=== PATIENT | female | born 1950 | race Caucasian/White ===

== ENCOUNTER 2020-12-28 00:40 | Inpatient (IN) | payer OTHER, SELFPAY ==
[~2020-12-28] VITALS: Ht 157.5 cm; Wt 90.7 kg
[2020-12-28 00:52] VITALS: BP 151/84
--- NOTE | 2020-12-28 01:02 | NUR ---
PT TAKEN TO BED 1
--- NOTE | 2020-12-28 01:15 | NUR ---
COVERING PRIMARY RN FOR LUNCH RELIEF. SEE COMPLETE ASSESSMENT FOR FUTHER DETAIL. PT PLACED ON 5L VIA NC, O2 SAT IMPROVED AND MAINTAINED AT 92%
--- NOTE | 2020-12-28 01:18 | NUR ---
Dr. Vasquez examining patient.
--- NOTE | 2020-12-28 01:24 | NUR ---
NO BLOOD PRODUCTS. NO COVID MEDICATION TREATMENTS.
--- NOTE | 2020-12-28 01:30 | NUR ---
BLOOD DRAWN VIA IV START AND GIVEN TO SHELIA AMAYA TECH
[2020-12-28] MEDS ORDERED: DEXAMETHASONE 4 MG/ML VIAL IVP ONE (01:40)
[2020-12-28] MEDS ORDERED: AZITHROMYCIN 250 MG TAB PO ONE (01:40)
[2020-12-28 01:47] LABS: BASOPHILS % (AUTO) 0.2 % (0.0-2.0); HEMATOCRIT 39.3 % (36-48); HEMOGLOBIN 13.6 g/dL (12.0-16.0); LYMPHOCYTES # (AUTO) 0.8 K/uL (2.5-16.5); LYMPHOCYTES % (AUTO) 14.6 % (20.5-51.1); MEAN CORPUSCULAR HEMOGLOBIN 29 pg (27-31); MEAN CORPUSCULAR HGB CONC 35 g/dL (33-37); MEAN CORPUSCULAR VOLUME 83.8 fL (80-94); MONOCYTES # (AUTO) 0.5 K/uL (0.8-1.0); MONOCYTES % (AUTO) 10.1 % (1.7-9.3); NEUTROPHILS % (AUTO) 75.1 % (42.2-75.2); PLATELET COUNT (AUTO) 191 K/uL (140-450); RED BLOOD CELL COUNT(AUTO) 4.68 MIL/uL (4.20-5.40); RED CELL DISTRIBUTION WIDTH 13.8 % (11.6-13.7); WHITE BLOOD COUNT (AUTO) 5.3 K/uL (4.8-10.8)
[2020-12-28] MEDS ORDERED: cefTRIAXone 1,000 MG VIAL ONE (01:54)
[2020-12-28 02:04] LABS: ANION GAP 11.4 (8-16); CARBON DIOXIDE 31.3 mmol/L (21-32); CREATININE 0.7 mg/dL (0.6-1.3); POTASSIUM 3.7 mmol/L (3.5-5.1)
[2020-12-28 02:13] LABS: TOTAL BILIRUBIN 0.6 mg/dL (0.0-1.0)
--- NOTE | 2020-12-28 02:19 | NUR ---
ARMEN speaking with daughter Brittnee about parents and their standing on their treatments.
--- NOTE | 2020-12-28 03:37 | NUR ---
assisted patient on bed elias. patient tolerated well but did have some shortness of breath and fatigued after movement.
--- NOTE | 2020-12-28 03:42 | NUR ---
spoke with Layton RODRIGUEZmanager machine for insurance about patient info
--- NOTE | 2020-12-28 03:57 | NUR ---
patient saturating at 85% for about 10mins with no change. ERMD made aware and was told to get a nonrebreather.
--- NOTE | 2020-12-28 04:07 | NUR ---
switched patient on nonrebreather 10L and saturating at 93%. during the switch of nasal cannula to non rebreather patient desaturated to 80%.
--- NOTE | 2020-12-28 04:59 | NUR ---
Patient will be admitted to care of Yaneth MARKS. Admited to Telemetry. Will go to room 117. Belongings list completed. Report to Katelynn RODRIGUEZ.
--- NOTE | 2020-12-28 05:55 | NUR ---
transferred patient to the floor
--- NOTE | 2020-12-28 06:33 | NUR ---
PATIENT ARRIVED TO UNIT MONITOR PLACED ON PT AND A SET OF VITAL SIGNS TAKEN BP 134/70 (92)MAP, 99.0 TEMP, 96% ON NRB AT 10L. MRSA SWAB COLLECTED. ASSISTED PATIENT TO USE BEDPAN. PATIENTS BUTTOCK'S CLEAR. URINATED x1 CLEAR , YELLOW URINE NOTED. PATIENT INSTRUCTED ON HOW TO USE CALL LIGHT. CURRENT NEEDS MET AT THIS TIME. I WILL ENDORSE ADMISSION TO DAY SHIFT.
--- NOTE | 2020-12-28 07:39 | NUR ---
SBAR GIVEN TO PENA RN, PATIENT IS STABLE ON 10L NRB AT THIS TIME. NO ACUTE DISTRESS NOTED. COVID POSITIVE ISOLATION. CURRENT NEEDS MET AT THIS TIME. ENDORSED ADMISSION TO DAY NURSE.
--- NOTE | 2020-12-28 07:40 | NUR ---
RECEIVED PATIENT FROM SCHOOL BUSINESS MANAGER NURSE FOR CONTINUITY OF CARE. PATIENT IS A/A/O X4. TELE MONITOR. RESPIRATORY EVEN AND UNLABORED, ON 10L NON REBREATHER MASK, O2 SAT IS 94%. LUNG SOUND DIMINISH ON BILATERAL. ABDOMEN SOFT, NON TENDER, BOWEL SOUND ACTIVE TO 4 QUADRANTS. S1 AND S2 NOTED, NO MURMUR. NO SIGN OF DISTRESS NOTED. SKIN WARM, DRY, NON DIAPHORETIC. IV ON LEFT AC 20G, INTACT AND PATENT, SALINE LOCK. PATIENT DENIES ANY PAIN OR DISCOMFORT. ABLE TO MAKE NEED KNOWN. PLAN OF CARE DISCUSSED, PATIENT VERBALIZED UNDERSTANDING. ORIENTED TO ROOM AND UNIT. PRECAUTION IN PLACE. CALL LIGHT WITHIN REACH. WILL CONTINUE TO MONITOR.
[2020-12-28] MEDS ORDERED: ONDANSETRON 4 MG/2 ML VIAL IM/IVP PRN (07:50)
[2020-12-28] MEDS ORDERED: DOCUSATE SODIUM 100 MG GELCAP PO PRN (07:50)
[2020-12-28] MEDS ORDERED: POTASSIUM CHLORIDE 10 MEQ TABER PO PRN (07:50)
[2020-12-28] MEDS ORDERED: ALBUTEROL HFA MDI 90 MCG/ACTUATION 8 GM INH PRN (07:50)
[2020-12-28] MEDS ORDERED: ACETAMINOPHEN 325 MG TAB PO PRN (07:50)
[2020-12-28] MEDS ORDERED: ZOLPIDEM 5 MG TAB PO PRN (07:50)
[2020-12-28] MEDS ORDERED: HYDROcodone/APAP 7.5/325 MG 1 TAB PO PRN (07:50)
[2020-12-28 08:00] VITALS: BP 146/70
[2020-12-28] MEDS: NACL 0.9% 1,000 ML IV SCH ×3 (08:27→21:20)
[2020-12-28] MEDS: ASCORBIC ACID 500 MG TAB PO SCH (08:55)
[2020-12-28] MEDS: ZINC SULF 220 MG CAP PO SCH (08:55)
[2020-12-28] MEDS: PANTOPRAZOLE 40 MG TABEC PO SCH (08:55)
[2020-12-28] MEDS ORDERED: COMMUNICATION ORDER MC SCH (09:00)
--- NOTE | 2020-12-28 09:00 | NUR ---
DR DOMINGO AT BEDSIDE DISCUSSED PATIENT CODE STATUS. PATIENT DECIDES "DO NOT INTUBATE AND NO CHEST COMPRESSION". DR DOMINGO AWARE.
--- NOTE | 2020-12-28 09:21 | NUR ---
AWAKE AND ALERT VERBALLY RESPONSIVE NO INDICATION FOR RESPIRATORY DISTRESS NOTED GOOD CHEST RISE AIRWAY PATENT RECEIVED ON SUPPLEMENTAL OXYGEN AT 15LPM VIA NON REBREATHER CANDIDATE FOR FIO2 TITRATION VIA BUBBLE HUMIDIFIER NASAL CANNULA
[2020-12-28 09:35] LABS: CHOL/HDL RATIO 3.2 (1-4.5); FREE T4 (FREE THYROXINE) 1.16 ng/dL (0.76-1.46); MAGNESIUM 2.3 mg/dL (1.8-2.4); PHOSPHORUS 3.6 mg/dL (2.5-4.9); THYROID STIMULATING HORMONE 0.45 uIU/mL (0.34-3.74)
[2020-12-28 09:55] LABS: PROTHROMBIN TIME 9.2 secs (10.8-13.4)
--- NOTE | 2020-12-28 11:03 | NUR ---
PLACED ON A SUPPLEMENTAL OXYGEN AT 8 LPM VIA BUBBLE HUMIDIFIER WITH A CURAPLEX NASAL CANNULA GARNETTER TO MONITOR AND TITRATE TOLERATED PENA/RN NOTIFIED
[2020-12-28 12:00] VITALS: BP_SYST 113; BP_SYST 146; BP_DIAS 69; BP_DIAS 70
[2020-12-28] MEDS ORDERED: REMDESIVIR. 200 MG in NACL 0.9% 100 ML IV SCH (12:00)
[2020-12-28] MEDS ORDERED: remdesivir CLINICAL MONITORING 1 EA MISC MC PRN (12:00)
--- NOTE | 2020-12-28 12:54 | NUR ---
PT REFUSED REMDESIVIR SCHEDULE, EDUCATION GIVEN REGARDING THE BENEFIT OF THE MEDICATION. PATIENT STILL REFUSES. WILL NOTIFY .
--- NOTE | 2020-12-28 14:15 | NUR ---
PATIENT HAS BEEN SCREENED AND CATEGORIZED MODERATE NUTRITION RISK. PATIENT WILL BE SEEN WITHIN 3-5 DAYS OF ADMISSION. 12/28/20 01/01/[address]
--- NOTE | 2020-12-28 14:50 | NUR ---
PATIENT AMBULATES TO BATHROOM INDEPENDENTLY, NO SIGN OF DISTRESS NOTED. PRECAUTION IN PLACE. WILL CONTINUE TO MONITOR.
--- NOTE | 2020-12-28 15:22 | NUR ---
DC PLANNING: THE PATIENT PRESENTED TO THE ED WITH C/O SOB X 3 DAYS AND A RECENT DX OF COVID. CM SPOKE WITH THE PATIENT BY PHONE BECAUSE OF HER ISOLATION FOR COVID. THE PATIENT LIVES IN A 2 STORY HOUSE WITH HER DAUGHTER AND GRANDCHILDREN, WITH SEPARATE LIVING QUARTERS DOWNSTAIRS FOR THE PATIENT AND HER . BOTH ARE VERY ACTIVE WITHOUT LIMITATIONS AND INDEPENDENT WITH ALL ACTIVITIES. NO DME OR H/O HOME HEALTH, THE PATIENT SEES HER PCP NEEDED BECAUSE SHE HAS NO CHRONIC HEALTH ISSUES. THE PATIENT IS CURRENTLY ON 8L O2 VIA NC WITH SATURATIONS AT 94%. THE DC PLAN IS FOR THE PATIENT TO RETURN HOME, CM WILL ARRANGE FOR HOME O2 IF NEEDED. CM WILL FOLLOW FOR NEEDS. Addendum: 01/01/21 at 1421 by Brigid Jarquin CM DC PLANNING: HOME O2 ORDER AND RT DOCUMENTATION FAXED TO KELVIN AT [facility] TO START PROCESS FOR AUTHORIZATION AND DELIVERY OF CONCENTRATOR AND PORTABLE O2. CM WILL FOLLOW FOR NEEDS. Addendum: 01/01/21 at 1619 by Brigid Jarquin CM DC PLANNING: O2 ARRANGED WITH [facility] ([phone]), JOYA CALLED THE PATIENTS DAUGHTER JOAQUIM TO DISCUSS DELIVERY OF O2, JOAQUIM STATED THAT THE PATIENT IS LEAVING NOW. CM CONFIRMED THAT THE PATIENT IS LEAVING WITHOUT O2 DELIVERY, JOAQUIM STATED THAT SHE IS. JOYA THEN INFORMED HER THAT THE PORTABLE O2 AND CONCENTRATOR WOULD BE DELIVERED TO THE PATIENTS HOME. HINA ROSENBERG [facility] FAXED THE ORDER TO [facility], JOYA THEN SPOKE WITH [facility] TO LET THEM KNOW TO DELIVER THE O2 TO THE PATIENTS HOME. CM WILL FOLLOW UP NEEDED.
[2020-12-28 16:00] VITALS: BP 123/69
--- NOTE | 2020-12-28 17:00 | NUR ---
PATIENT IS RESTING IN BED, NO SIGN OF RESPIRATORY DISTRESS NOTED. PRECAUTION IN PLACE. CALL LIGHT WITHIN REACH. WILL CONTINUE TO MONITOR.
--- NOTE | 2020-12-28 18:35 | NUR ---
PATIENT IS SITTING UP FOR DINNER, NO SIGN OF SOB, PATIENT IS STABLE. PRECAUTION IN PLACE. CALL LIGHT WITHIN REACH. WILL CONTINUE TO MONITOR.
--- NOTE | 2020-12-28 19:00 | NUR ---
RECEIVED BEDSIDE REPORT FROM DAY SHIFT NURSE. PATIENT IS AWAKE, ALERT, AND COOPERATIVE RESPIRATION EVEN UNLABORED ON 8L NC O2, SATING AT 89%. NO DISTRESS NOTED. SKIN IS WARM AND DRY. IV PATENT AND INTACT. PLAN OF CARE WAS DISCUSSED. ALL SAFETY MEASURES IN PLACE. BED IS AT LOW POSITION. CALL LIGHT WITHIN REACH. WILL CONTINUE TO MONITOR.
--- NOTE | 2020-12-28 19:18 | NUR ---
ENDORSED PATIENT TO GEOLOGICAL DRAFTER NURSE FOR CONTINUITY OF CARE. PATIENT IS STABLE.
[2020-12-28 20:00] VITALS: BP 120/71
--- NOTE | 2020-12-28 20:55 | NUR ---
ALL SCHEDULED MEDS WERE GIVEN PER ORDER. WILL CONTINUE TO MONITOR
[2020-12-28] MEDS ORDERED: CYCLOBENZAPRINE 10 MG TAB PO PRN (21:15)
[2020-12-28] MEDS ORDERED: CRUSHER, PILL MC ONE (21:49)
--- NOTE | 2020-12-28 21:55 | NUR ---
PATIENT COMPLAINED OF MUSCLE SPASM, PRN FLEXERIL GIVEN PER ORDER. WILL CONTINUE TO MONITOR
[2020-12-29] VITALS: BP 126/55
--- NOTE | 2020-12-29 | NUR ---
VITALS WERE TAKEN
--- NOTE | 2020-12-29 02:01 | NUR ---
MADE ROUNDS PATIENT SLEEPING RESPIRATION EVEN UNLABORED ON 8L NC O2. SATING 93% WILL CONTINUE TO MONITOR
[2020-12-29 04:00] VITALS: BP 130/66
[2020-12-29] MEDS ORDERED: cefTRIAXone 1,000 MG VIAL ONE (05:13)
[2020-12-29] MEDS: AZITHROMYCIN 250 MG TAB PO SCH (05:44)
[2020-12-29 06:07] LABS: T4 (THYROXINE) 8.6 ug/dL (4.5-12.0)
--- NOTE | 2020-12-29 06:07 | NUR ---
FIRST DOSE OF ROCEPHIN GIVEN PER ORDER. WILL CONTINUE TO MONITOR
[2020-12-29 06:26] LABS: HEMATOCRIT 33.8 % (36-48); HEMOGLOBIN 11.7 g/dL (12.0-16.0); LYMPHOCYTES # (AUTO) 0.7 K/uL (2.5-16.5); LYMPHOCYTES % (AUTO) 10.5 % (20.5-51.1); MEAN CORPUSCULAR HEMOGLOBIN 29 pg (27-31); MEAN CORPUSCULAR HGB CONC 35 g/dL (33-37); MEAN CORPUSCULAR VOLUME 84.2 fL (80-94); MONOCYTES # (AUTO) 0.6 K/uL (0.8-1.0); MONOCYTES % (AUTO) 9.4 % (1.7-9.3); NEUTROPHILS # (AUTO) 5.2 K/uL (1.8-7.7); NEUTROPHILS % (AUTO) 80.1 % (42.2-75.2); PLATELET COUNT (AUTO) 211 K/uL (140-450); RED BLOOD CELL COUNT(AUTO) 4.02 MIL/uL (4.20-5.40); RED CELL DISTRIBUTION WIDTH 13.9 % (11.6-13.7); WHITE BLOOD COUNT (AUTO) 6.5 K/uL (4.8-10.8)
[2020-12-29 06:29] LABS: ANION GAP 15.8 (8-16); CARBON DIOXIDE 26.7 mmol/L (21-32); CREATININE 0.6 mg/dL (0.6-1.3); POTASSIUM 3.5 mmol/L (3.5-5.1)
[2020-12-29 06:39] LABS: ALBUMIN 2.4 g/dL (3.4-5.0); BILIRUBIN,DIRECT 0.1 mg/dL (0.0-0.3); TOTAL BILIRUBIN 0.3 mg/dL (0.0-1.0)
--- NOTE | 2020-12-29 07:19 | NUR ---
ENDORSED PATIENT TO DAY SHIFT NURSE FOR CONTINUITY OF CARE
--- NOTE | 2020-12-29 07:20 | NUR ---
Received report from pm nurse Юлия. Patient resting in bed, respirations even & nonlabored on O2 @ 8Lpm via n/c. Left AC IV 20G intact with ongoing NS @ 100ml/hr. Call light within reach.
[2020-12-29] MEDS: ZINC SULF 220 MG CAP PO SCH (08:41)
[2020-12-29] MEDS: ASCORBIC ACID 500 MG TAB PO SCH (08:41)
[2020-12-29] MEDS: PANTOPRAZOLE 40 MG TABEC PO SCH (08:41)
[2020-12-29 12:00] VITALS: BP 136/65
[2020-12-29] MEDS ORDERED: REMDESIVIR. 100 MG in NACL 0.9% 100 ML IV SCH (12:00)
--- NOTE | 2020-12-29 12:30 | NUR ---
Patient sitting up at edge of bed, eating lunch. No c/o discomfort, no signs of distress, respirations even & nonlabored on O2 @ 8L/min via n/c.
[2020-12-29] MEDS: NACL 0.9% 1,000 ML IV SCH ×2 (14:49→23:03)
[2020-12-29 16:00] VITALS: BP 126/72
--- NOTE | 2020-12-29 18:30 | NUR ---
Patient sitting up at edge of bed, eating dinner. No c/o discomfort, respirations even & nonlabored on O2 @ 8L/min via n/c. Left AC IV 20G intact with ongoing NS @ 100ml/hr. Call light within reach.
--- NOTE | 2020-12-29 19:16 | NUR ---
Report given to price Ashraf
--- NOTE | 2020-12-29 19:18 | NUR ---
RECEIVED BEDSIDE REPORT FROM DAY SHIFT NURSE FOR CONTINUITY OF CARE. PATIENT IS AWAKE, ALERT, AND ORIENTED.ON 8L NC O2, SATING AT 92&. NO DISTRESS NOTED.IV INFUSING WELL.ALL SAFETY MEASURES IN PLACE. CALL LIGHT WITHIN REACH. WILL CONTINUE TO MONITOR.
[2020-12-29 20:00] VITALS: BP 155/73
--- NOTE | 2020-12-29 21:00 | NUR ---
SCHEDULED MEDICATION ADMINISTERED.PT NO S/SX OF DISTRESS. CALL LIGHT WITHIN REACH. WILL CONTINUE TO MONITOR.
--- NOTE | 2020-12-29 23:30 | NUR ---
ROUNDS MADE. PT RESTING ON BED. PT NO SIGNS RESPIRATORY OF DISTRESS. PT O2 AT 95%. CALL LIGHT WITHIN REACH. WILL CONTINUE TO MONITOR.
[2020-12-30] VITALS: BP 156/65
[2020-12-30] MEDS: guaiFENesin DM 200/20 MG-10 ML 10 ML UDC PO PRN (02:28)
--- NOTE | 2020-12-30 02:30 | NUR ---
PT COMPLAINED OF COUGH.GIVEN PRN COUGH MEDICATION. PT TOLERATED WELL.CALL LIGHT WITHIN REACH. WILL CONTINUE TO MONITOR.
[2020-12-30 04:00] VITALS: BP 162/75
--- NOTE | 2020-12-30 05:00 | NUR ---
DUE MEDICATIONS GIVEN. PT NOT IN ANY DISTRESS. PROVIDED WARM BLANKET. NO S/SX OF DISTRESS.ALL PRECAUTIONS IN PLACE.CALL LIGHT WITHIN REACH. WILL CONTINUE TO MONITOR.
[2020-12-30] MEDS: AZITHROMYCIN 250 MG TAB PO SCH (05:30)
[2020-12-30 06:08] LABS: ANION GAP 9.3 (8-16); CARBON DIOXIDE 30.4 mmol/L (21-32); CREATININE 0.6 mg/dL (0.6-1.3); POTASSIUM 3.7 mmol/L (3.5-5.1)
--- NOTE | 2020-12-30 06:24 | NUR ---
PT STABLE.NO ACUTE EVENTS THROUGHOUT THE NIGHT.ALL NEEDS ATTENDED.NO OTHER COMPLAINS AT THIS TIME. CALL LIGHT WITHIN REACH. ALL SAFETY PRECAUTIONS IN PLACE.WILL CONTINUE TO MONITOR.WILL ENDORSE TO AM SHIFT NURSE.
[2020-12-30 06:29] LABS: HEMOGLOBIN 12.1 g/dL (12.0-16.0); LYMPHOCYTES # (AUTO) 0.5 K/uL (2.5-16.5); LYMPHOCYTES % (AUTO) 7.4 % (20.5-51.1); MEAN CORPUSCULAR HEMOGLOBIN 29 pg (27-31); MEAN CORPUSCULAR HGB CONC 35 g/dL (33-37); MONOCYTES # (AUTO) 0.5 K/uL (0.8-1.0); MONOCYTES % (AUTO) 7.5 % (1.7-9.3); NEUTROPHILS % (AUTO) 85.1 % (42.2-75.2); PLATELET COUNT (AUTO) 246 K/uL (140-450); RED BLOOD CELL COUNT(AUTO) 4.17 MIL/uL (4.20-5.40); RED CELL DISTRIBUTION WIDTH 13.8 % (11.6-13.7); WHITE BLOOD COUNT (AUTO) 7.1 K/uL (4.8-10.8)
--- NOTE | 2020-12-30 07:25 | NUR ---
RECEIVED BEDSIDE REPORT FROM BURRER MACHINE NURSE FOR CONTINUITY OF CARE. PT IS ASLEEP. CHEST RISE AND FALL IS SYMMETRICAL. ON 8L O2 NC WITH BREATHING UNLABORED. AMBULATORY INDEPENDENTLY. SKIN IS WARM, DRY, AND INTACT. IV IS IN THE RIGHT FOREARM 24 GAUGE RUNNING NS AT 100 ML PER HOUR PER ORDER. PT IS STABLE. PLAN OF CARE DISCUSSED.
--- NOTE | 2020-12-30 07:34 | NUR ---
PT ENDORSED TO AM SHIFT NURSE FOR CONTINUITY OF CARE. PT STABLE
[2020-12-30 08:00] VITALS: BP 124/79
--- NOTE | 2020-12-30 08:30 | NUR ---
DR. DOMINGO NOTIFIED IN PERSON OF SVT ON TELE MONITOR, HR IS 169. DOCTOR STATED TO MONITOR CLOSELY. PT IS IN BED RESTING COMFORTABLY. DENIES CHEST PAIN OR SOB. PT ALSO DENIES ANXIETY. WILL CONTINUE TO MONITOR.
--- NOTE | 2020-12-30 09:00 | NUR ---
WAS NOTIFIED BY Oony THAT HR IS NOW SR, HR 98. WILL CONTINUE TO MONITOR HR.
[2020-12-30] MEDS: ASCORBIC ACID 500 MG TAB PO SCH (09:42)
[2020-12-30] MEDS: ZINC SULF 220 MG CAP PO SCH (09:42)
[2020-12-30] MEDS: lisinopriL 10 MG TAB PO SCH (09:42)
[2020-12-30] MEDS: PANTOPRAZOLE 40 MG TABEC PO SCH (09:42)
[2020-12-30] MEDS: NACL 0.9% 1,000 ML IV SCH ×2 (10:47→19:50)
--- NOTE | 2020-12-30 11:00 | NUR ---
PT IS AWAKE AND ALERT. ON 8L O2 NC WITH O2 SAT 90%. PT DENIES SHORTNESS OF BREATH. DENIES PAIN AT THIS TIME. PT IS STABLE.
[2020-12-30 12:00] VITALS: BP 143/79
--- NOTE | 2020-12-30 13:00 | NUR ---
PT IS SITTING UP IN BED, EATING LUNCH. PT STATES SHE IS OKAY AT THIS TIME. O2 SAT IS 90% ON 8L O2 NC. BREATHING IS UNLABORED. PT APPEARS TO BE COMFORTABLE WITH NO DISTRESS.
--- NOTE | 2020-12-30 15:00 | NUR ---
BREATHING IS UNLABORED ON 8L O2 NC. PT IS AMBULATING INDEPENDENTLY WITH STEADY GAIT. O2 SAT IS CURRENTLY 90%. PT DENIES PAIN. NO COUGHING PRESENT. WILL CONTINUE TO MONITOR.
[2020-12-30 16:00] VITALS: BP 166/88
--- NOTE | 2020-12-30 16:30 | NUR ---
DAUGHTER JOAQUIM NARAYAN CALLED AND INQUIRED ABOUT CONDITION OF MOTHER. INFORMED HER OF THE ELEVATED BP AND TOLD HER THAT THE PT WAS STARTED ON LISINOPRIL IN THE AM TO CONTROL THE ELEVATED BP. INFORMED HER THAT I JUST CHECKED BP AND IT WAS 166/88, THEREFORE IT BECAME ELEVATED AGAIN AND I WAS GOING TO CONTACT DR. DOMINGO AFTER THIS CALL TO OBTAIN A MEDICATION TO CONTROL THE BP. JOAQUIM STATED THAT SHE DOES NOT WANT PT ON LISINOPRIL OR ANY OTHER BP MEDICATION. WITH EDUCATION PT'S FAMILY STILL REFUSED BP MED. SHE ASKED TO SPEAK TO DR. DOMINGO, WILL PROVIDE DR. DOMINGO WITH HER PHONE NUMBER.
--- NOTE | 2020-12-30 16:34 | NUR ---
SPOKE TO PATIENT AND INFORMED HER THAT HER BP IS HIGH 166/88 AND THE DOCTOR WILL NEED TO ORDER BP MEDICATION TO CONTROL THE BP. PT STATES SHE DOES NOT WANT TO TAKE BP MEDICATION AND WOULD LIKE TO WAIT TO SEE IF BP WILL GO DOWN. INFORMED HER OF THE RISKS OF NOT TAKING MEDICATION TO LOWER THE BP AND PT VERBALIZED UNDERSTANDING. IN NEXT BED ALSO WITNESSED CONVERSATION. PT STILL DENIED WANTING TO TAKE BP MEDICATION. WILL INFORM DR. DOMINGO.
--- NOTE | 2020-12-30 16:35 | NUR ---
PROVIDED DR. DOMINGO WITH THE DAUGHTER, JOAQUIM'S, PHONE NUMBER AND ASKED HIM TO CALL HER WHEN AVAILABLE. INFORMED HIM OF THE SITUATION REGARDING NEW MEDICATION INCLUDING NOT WANTING THE PT TO HAVE BP MEDICATION. DOCTOR IS AWARE AND STATED HE WILL CALL DAUGHTERJOAQUIM.
--- NOTE | 2020-12-30 18:14 | NUR ---
ROUNDED ON PT. DINNER WAS PLACED AT BEDSIDE. PT STATES SHE IS NOT HUNGRY AT THIS TIME BUT WILL EAT FOOD THAT IS NOT SALTY. O2 SAT IS 94% ON 8L O2 NC. BREATHING IS UNLABORED. PT DENIES SOB. PT STABLE.
--- NOTE | 2020-12-30 19:05 | NUR ---
ENDORSED PT TO CREATIVE WRITING TEACHER NURSE FOR CONTINUITY OF CARE. PT IS STABLE. PLAN OF CARE DISCUSSED.
--- NOTE | 2020-12-30 19:06 | NUR ---
RECEIVED BEDSIDE REPORT FROM DAY SHIFT NURSE FOR CONTINUITY OF CARE. PATIENT IS SITTING IN BED, AWAKE, ALERT, AND ORIENTED.ON 8L NC O2.SKIN DRY AND INTACT.PT NOT IN ANY DISTRESS.IV INFUSING WELL.ALL SAFETY MEASURES IN PLACE. CALL LIGHT WITHIN REACH. WILL CONTINUE TO MONITOR.
[2020-12-30 20:00] VITALS: BP 162/65
--- NOTE | 2020-12-30 21:00 | NUR ---
SCHEDULED MEDS GIVEN.PT TOLERATED WELL.PT'S BP IS HIGH.PT STATES SHE DOES NOT WANT TO TAKE ANY BP MEDICATION. INFORMED HER OF THE RISKS OF NOT TAKING MEDICATION TO LOWER THE BP AND PT VERBALIZED UNDERSTANDING. PT DENIES CHEST PAIN, DIZZINESS, AND ANY DISCOMFORT.PT HAS NO COMPLAINS AT THIS TIME.ALL PRECAUTIONS IN PLACE.CALL LIGHT WITHIN REACH. WILL CONTINUE TO MONITOR
--- NOTE | 2020-12-30 23:50 | NUR ---
ROUNDS MADE. PT SITTING IN BED. PT NO SIGNS RESPIRATORY OF DISTRESS. PT O2 AT 91%. CALL LIGHT WITHIN REACH. WILL CONTINUE TO MONITOR.
[2020-12-31] VITALS: BP 168/73
--- NOTE | 2020-12-31 02:45 | NUR ---
ROUNDS MADE. PT SLEEPING. PT NO SIGNS RESPIRATORY OF DISTRESS.VISIBLE CHEST RISE AND FALL NOTED. PT O2 AT 93%. ALL PRECAUTIONS IN PLACE.CALL LIGHT WITHIN REACH. WILL CONTINUE TO MONITOR.
[2020-12-31 04:00] VITALS: BP 166/71
--- NOTE | 2020-12-31 04:38 | NUR ---
PT AWAKE AND ALERT VERBALLY RESPONSIVE W/ NO SIGNS OF RESPIRATORY DISTRESS, SYMMETRICAL CHEST RISE SATING 94%ON BUBBLE HUMIDIFIER NASAL CANNULA. WILL CONTINUE TO MONITOR.
--- NOTE | 2020-12-31 05:38 | NUR ---
DUE MEDICATIONS GIVEN. PT NOT IN ANY DISTRESS. PROVIDED WARM BLANKET.ALL NEEDS ATTENDED.ALL PRECAUTIONS IN PLACE.CALL LIGHT WITHIN REACH. WILL CONTINUE TO MONITOR.
[2020-12-31] MEDS: NACL 0.9% 1,000 ML IV SCH ×2 (05:50→15:48)
[2020-12-31 06:15] LABS: ANION GAP 13.5 (8-16); CARBON DIOXIDE 28.3 mmol/L (21-32); CREATININE 0.7 mg/dL (0.6-1.3); POTASSIUM 3.8 mmol/L (3.5-5.1)
[2020-12-31] MEDS: AZITHROMYCIN 250 MG TAB PO SCH (06:26)
[2020-12-31 06:34] LABS: HEMATOCRIT 36.3 % (36-48); HEMOGLOBIN 12.4 g/dL (12.0-16.0); LYMPHOCYTES # (AUTO) 0.6 K/uL (2.5-16.5); LYMPHOCYTES % (AUTO) 8.3 % (20.5-51.1); MEAN CORPUSCULAR HEMOGLOBIN 29 pg (27-31); MEAN CORPUSCULAR HGB CONC 34 g/dL (33-37); MEAN CORPUSCULAR VOLUME 84.1 fL (80-94); MONOCYTES # (AUTO) 0.5 K/uL (0.8-1.0); MONOCYTES % (AUTO) 6.5 % (1.7-9.3); NEUTROPHILS # (AUTO) 6.1 K/uL (1.8-7.7); NEUTROPHILS % (AUTO) 85.2 % (42.2-75.2); PLATELET COUNT (AUTO) 302 K/uL (140-450); RED BLOOD CELL COUNT(AUTO) 4.31 MIL/uL (4.20-5.40); RED CELL DISTRIBUTION WIDTH 13.9 % (11.6-13.7); WHITE BLOOD COUNT (AUTO) 7.2 K/uL (4.8-10.8)
--- NOTE | 2020-12-31 07:15 | NUR ---
PT ENDORSED TO AM SHIFT NURSE FOR CONTINUITY OF CARE. PT IS STABLE.
--- NOTE | 2020-12-31 07:22 | NUR ---
RECEIVED BEDSIDE REPORT FROM FLOOR SURFACER NURSE FOR CONTINUITY OF CARE. PT IS AWAKE AND ALERT. A&OX4. ON 8L O2 NC WITH BREATHING UNLABORED. O2 SAT IS 90%. PT IS ON TELE MONITOR. AMBULATORY INDEPENDENTLY. SKIN IS WARM, DRY, AND INTACT. IV IS IN THE RIGHT HAND AND PATENT. PT IS STABLE. PLAN OF CARE DISCUSSED.
[2020-12-31 08:00] VITALS: BP 138/64
[2020-12-31] MEDS: lisinopriL 10 MG TAB PO SCH (09:00)
[2020-12-31] MEDS: PANTOPRAZOLE 40 MG TABEC PO SCH (09:21)
[2020-12-31] MEDS: ZINC SULF 220 MG CAP PO SCH (09:21)
[2020-12-31] MEDS: ASCORBIC ACID 500 MG TAB PO SCH (09:21)
--- NOTE | 2020-12-31 09:30 | NUR ---
PT IS SITTING UP IN BED. BREATHING UNLABORED ON 4L O2 NC. O2 SAT IS 90%. PT DENIES ANY DISTRESS OR PAIN. PT DID NOT EAT A LOT OF BREAKFAST AND SHE STATED SHE WAS NOT HUNGRY. ALL NEEDS MET.
--- NOTE | 2020-12-31 09:52 | NUR ---
PT REFUSED LISINOPRIL MEDICATION SCHEDULED. EXPLAINED RISKS OF NOT TAKING BP MEDICATION AND PT VERBALIZED UNDERSTANDING. PT STILL REFUSED TO TAKE MEDICATION. BP IS STABLE AT THIS TIME. WILL CONTINUE TO MONITOR.
--- NOTE | 2020-12-31 11:51 | NUR ---
PT IS AWAKE AND ALERT. SITTING UP IN BED IN FRONT OF BEDSIDE TABLE. PT STATES SHE IS OKAY RIGHT NOW. O2 SAT IS 95% ON 4L O2 NC. BREATHING IS UNLABORED. WILL CONTINUE TO MONITOR PT.
[2020-12-31 12:00] VITALS: BP_SYST 129; BP_SYST 150; BP_DIAS 78; BP_DIAS 81
--- NOTE | 2020-12-31 14:45 | NUR ---
O2 SAT IS 93% ON 4L O2 NC. PT WAS TITRATED DOWN TO 3L O2 NC. MONITORED PT FOR 15 MINUTES AND O2 SAT MAINTAINED AT 91%. NO RESPIRATORY DISTRESS NOTED. PT DENIES SOB. PT STABLE. WILL CONTINUE TO MONITOR.
[2020-12-31 16:00] VITALS: BP 156/72
--- NOTE | 2020-12-31 16:45 | NUR ---
PT IS AWAKE AND SITTING AT CHAIR. LINENS WERE CHANGED ON BED AND PT WAS GIVEN NEW GOWN. BREATHING IS UNLABORED ON 4L O2 NC. PT STABLE. WILL CONTINUE TO MONITOR.
--- NOTE | 2020-12-31 19:01 | NUR ---
ENDORSED PT TO API ARCHITECT NURSE FOR CONTINUITY OF CARE. PT IS STABLE AT THIS TIME. O2 SAT IS 90% ON 4L O2 NC. PLAN OF CARE DISCUSSED.
--- NOTE | 2020-12-31 19:10 | NUR ---
RECEIVED BEDSIDE REPORT FROM DAY SHIFT NURSE FOR CONTINUITY OF CARE. PATIENT IS SITTING ON BED,AWAKE, ALERT, AND ORIENTED.ON 4L NC O2 SAT AT 91%. NO RESPIRATORY DISTRESS NOTED.IV INFUSING WELL.ALL SAFETY MEASURES IN PLACE. CALL LIGHT WITHIN REACH. WILL CONTINUE TO MONITOR.
[2020-12-31 20:00] VITALS: BP 159/69
--- NOTE | 2020-12-31 21:00 | NUR ---
SCHEDULED MEDICATION ADMINISTERED.PT TOLERATED WELL.PT NO S/SX OF DISTRESS. CALL LIGHT WITHIN REACH. WILL CONTINUE TO MONITOR.
[2020-12-31] MEDS: guaiFENesin DM 200/20 MG-10 ML 10 ML UDC PO PRN (22:50)
--- NOTE | 2020-12-31 22:50 | NUR ---
PT COMPLAINED OF COUGH.GIVEN PRN COUGH MEDICATION. PT TOLERATED WELL.CALL LIGHT WITHIN REACH. WILL CONTINUE TO MONITOR.
[2021-01-01] VITALS: BP 155/72
--- NOTE | 2021-01-01 01:15 | NUR ---
ROUNDS MADE. PT RESTING IN BED. PT HAS NO SIGNS AND SYMPTOMS OF RESPIRATORY DISTRESS. PT O2 SAT @ 94%. CALL LIGHT WITHIN REACH. WILL CONTINUE TO MONITOR.
[2021-01-01] MEDS: NACL 0.9% 1,000 ML IV SCH ×2 (01:50→12:04)
--- NOTE | 2021-01-01 02:30 | NUR ---
ROUNDS MADE. PT REQUESTED WARM BLANKET. PT'S O2 SAT @ 92%.ALL NEEDS MET.CALL LIGHT WITHIN REACH.WILL CONTINUE TO MONITOR
[2021-01-01 04:00] VITALS: BP 141/73
--- NOTE | 2021-01-01 05:00 | NUR ---
SCHEDULED ANTIBIOTICS GIVEN. PT TOLERATED WELL. WILL CONTINUE TO MONITOR.
[2021-01-01 06:06] LABS: BASOPHILS % (AUTO) 0.1 % (0.0-2.0); EOSINOPHILS % (AUTO) 0.1 % (0.0-4.0); HEMATOCRIT 35.2 % (36-48); HEMOGLOBIN 12.2 g/dL (12.0-16.0); LYMPHOCYTES # (AUTO) 0.7 K/uL (2.5-16.5); LYMPHOCYTES % (AUTO) 9.2 % (20.5-51.1); MEAN CORPUSCULAR HEMOGLOBIN 29 pg (27-31); MEAN CORPUSCULAR HGB CONC 35 g/dL (33-37); MONOCYTES # (AUTO) 0.5 K/uL (0.8-1.0); MONOCYTES % (AUTO) 7.5 % (1.7-9.3); NEUTROPHILS % (AUTO) 83.1 % (42.2-75.2); PLATELET COUNT (AUTO) 320 K/uL (140-450); RED BLOOD CELL COUNT(AUTO) 4.19 MIL/uL (4.20-5.40); RED CELL DISTRIBUTION WIDTH 13.4 % (11.6-13.7); WHITE BLOOD COUNT (AUTO) 7.2 K/uL (4.8-10.8)
[2021-01-01] MEDS: AZITHROMYCIN 250 MG TAB PO SCH (06:27)
[2021-01-01 06:34] LABS: ANION GAP 12.8 (8-16); CARBON DIOXIDE 28.5 mmol/L (21-32); CREATININE 0.6 mg/dL (0.6-1.3); POTASSIUM 3.3 mmol/L (3.5-5.1)
--- NOTE | 2021-01-01 07:41 | NUR ---
PT ENDORSED TO AM SHIFT NURSE FOR CONTINUITY OF CARE. PT IS STABLE.
--- NOTE | 2021-01-01 07:54 | NUR ---
PT RESTING IN DANGLING POSITION RESTING ARMS IN BED SIDE TABLE (TRIPOD POSITIONING . pT ABLE TO MAKE NEEDS KNOWN CALL LIGHT WITHIN REACH ALL SAFETY MEASURES ARE IN PLACE.
[2021-01-01 08:00] VITALS: BP 145/68
[2021-01-01] MEDS: PANTOPRAZOLE 40 MG TABEC PO SCH (09:01)
[2021-01-01] MEDS: ASCORBIC ACID 500 MG TAB PO SCH (09:02)
[2021-01-01] MEDS: ZINC SULF 220 MG CAP PO SCH (09:02)
[2021-01-01] MEDS: lisinopriL 10 MG TAB PO SCH (09:02)
--- NOTE | 2021-01-01 09:25 | NUR ---
MEDICATIONS GIVEN PER MD ORDER. PT EDUCATED VERBALIZED UNDERSTANDING . PT REFUSED LISINOPRIL AT THIS TIME . PT EDUCATED ON HE BP AND IMPORTANCE, RISK , MORBIDITY AND MORTALITY OF NOT TAKING MEDICATION . PT STILL REFUSED . ALL SAFETY MEASURES ARE IN PLACE.
--- NOTE | 2021-01-01 11:32 | NUR ---
PT RESTING IN BED REQUEST WARM BLANKET PT PROVIDED BLANKET PER REQUEST. LINEN CHANGED. SPONGE BATHS OFFERED. PT ABLE TO PERFORM INDEPENDENTLY ALL SAFETY MEASURES ARE IN PLACE. 02% 95%
--- NOTE | 2021-01-01 14:06 | NUR ---
RECEIVED PT ON 4L NC. PLACED PT ON ROOM AIR FOR HOME O2 QUALIFICATION. PT AMBULATED BACK AND FORTH FOR ABOUT 2 MINUTES BEFORE SATURATIONS DROPPED TO 83%. TEST ENDED AND PLACED PT BACK SITTING ON BED. OXYGEN TURNED BACK ON TO 4L PT SATURATION RETURNED TO 92%. NO SIGNS OF RESPIRATORY DISTRESS. WILL CONTINUE TO MONITOR.
[2021-01-01 14:13] VITALS: BP 143/67
--- NOTE | 2021-01-01 15:33 | NUR ---
PT STATES SHE IS GOING AMA WITH . AWARE.
--- NOTE | 2021-01-01 15:56 | NUR ---
01/01/21 RD INITIAL ASSESSMENT COMPLETED PLEASE REFER TO NUTRITION ASSESSMENT UNDER CARE ACTIVITY FOR ESTIMATED NUTRITIONAL NEEDS. 1. CONTINUE REGULAR DIET TOLERATED 2. RD TO FOLLOW-UP 3-5 DAYS, MODERATE RISK BUNNY NEGRO RD
--- NOTE | 2021-01-01 16:00 | NUR ---
PT LEFT UNIT VIA WHEELCHAIR. ALL PERSONAL BELONGINGS GATHERED. PT EXPLAINED , RISKS, MORBIDITY AND MORTALITY RISKS OF LEAVING AGAINTS MEDICAL ADVICE, PT SINGED DOCUMENT ; PT COOPERATIVE AND THANKFUL.
== END 2021-01-01 16:55 | disposition left against medical advice (07) | DRG 177 ==
LOC: MED 00:40 → MTU 04:25 → MMU 12:40
PROVIDERS: ADMIT Family Medicine; ATTEND Family Medicine
DX: U07.1 COVID-19 (principal); J12.82 Pneumonia due to coronavirus disease 2019; J96.01 Acute respiratory failure with hypoxia; E44.0 Moderate protein-calorie malnutrition; E87.1 Hypo-osmolality and hyponatremia; D68.59 Other primary thrombophilia; E78.5 Hyperlipidemia, unspecified; E87.8 Other disorders of electrolyte and fluid balance, not elsewhere classified; R74.01 Elevation of levels of liver transaminase levels; Z68.36 Body mass index [BMI] 36.0-36.9, adult; Z53.29 Procedure and treatment not carried out because of patient's decision for other reasons
CPT/HCPCS: 36415; 71045; 71275; 80048; 80053; 80076; 82150; 83036; 83605; 83615; 83690; 83735; 83880; 84100; 84436; 84439; 84443; 84479; 84484; 85025; 85379; 85384; 85610; 85651; 85730; 86140; 86886; 86900; 86901; 87040; 87081; 93005; 96365; 96375; 99291; 99292; J0696; J1100; J1644; J7060; Q0092; Q9967; U0003